=== PATIENT | male | born 1980 | race Caucasian/White ===

== ENCOUNTER 2025-06-21 14:50 | Emergency (ER) | payer BC, SELFPAY ==
[2025-06-21 14:56] VITALS: BP 155/93
[2025-06-21 17:00] VITALS: BMI 28.6
--- NOTE | 2025-06-21 17:50 | ED.GENMED ---
History of Present Illness
General
Chief Complaint: Eye Problems
Source: patient
Exam Limitations: none
Time Seen by Provider: 06/21/25 17:06
Nursing documentation reviewed up to this point in time: agreed with
History of Present Illness
History of Present Illness:
Patient to ED with complaint of left eye floaters. States he was accidentally elbowed over right eye yesterday. Last PM he noticed floaters. Denies blurred vision. Denies any eye pain. Brought self to ED for eval.
Past History
Past History
ED Past Medical History: None
Review of Systems
Review of Systems
Allergies reviewed?: Yes
All Other Systems: ROS reviewed and negative except as documented in HPI and ROS
Constitutional: Reports no symptoms
EENT: Reports other (right eye floaters)
Respiratory: Reports no symptoms
Cardiac: Reports no symptoms
ABD/GI: Reports no symptoms
: Reports no symptoms
Musculoskeletal: Reports no symptoms
Skin: Reports no symptoms
Neurological: Reports no symptoms
Psychiatric: Reports no symptoms
Phy Exam
General Physical Exam
General Presentation: well appearing and no apparent distress
General age: appears stated age
General Skin: warm and dry
General Habitus: normal
General Mental: alert
Eye Exam
Eye Exam: PERRL, EOMI, cornea clear, conjunctiva normal, disc sharp, globe normal and other (No hyphema, neg. gabby. Pressures - L 18, R19.)
Type of Exam: slit lamp, simple and fluorescein
Neurological Exam
Neurological Exam: alert, oriented x3 and CN II-XII intact
Musculoskeletal Exam
Musculoskeletal Exam: full ROM
Skin Exam
Skin Exam: normal color, warm/dry, no rash and other (No periorbital bruising or swelling)
Psychiatric Exam
Psychiatric Exam: normal mood/affect
Course
Orders/Labs/Results
Orders:
Orders
06/21/25 17:30
Fluorescein Sodium [Ful-Anna] 1 mg .ROUTE .STK-MED ONE
Tetracaine HCl [Tetracaine 0.5% Ophthalmic Solution] 1 drop .ROUTE .STK-MED ONE
Vital Signs
Initial and Last Documented VS:
Initial Vital Signs
Temp Pulse Resp BP Pulse Ox
98.7 F 79 17 155/93 99
06/21/25 14:56 06/21/25 14:56 06/21/25 14:56 06/21/25 14:56 06/21/25 14:56
Last Documented Vital Signs
Temp Pulse Resp BP Pulse Ox
98.7 F 79 17 155/93 99
06/21/25 14:56 06/21/25 14:56 06/21/25 14:56 06/21/25 14:56 06/21/25 14:56
*Radiology
Radiology exam reviewed: radiology read reviewed
*Pulse Oximetry
SaO2: 99
Oxygen Mode of Delivery: Room air
Patient hypoxic: no
*Critical Care Note
Total Time (30-74mins, 75-104mins- exclusive of procedures): Not Applicable
Update Note
Update Note:
Patient to ED with report of floaters in right eye.Accidentally elbowed over right orbit yesterday. No concerning findings on eye exam. PERRL, EOMI, conjunctiva is clear. No periorbital pain, swelling, bruising. No bleeding noted on exam.
Visualized portion of retina intact. WIll discharge home, to follow up with ophthalmology in AM. Given instructions on s/s to return to ED and he is agreeable toplan.
ED Attending Note
-
Portions of this chart may have been created with voice recognition software.� Occasional wrong word or��sound alike� substitutions may have occurred due to the inherent limitations of voice recognition software.
Discharge Plan
Departure
Patient Disposition: Home (Routine Discharge)
Date of Disposition: 06/21/25
Time of Disposition: 17:48
Patient with high blood pressure during this ER visit?: No
Condition: Good
Covid-19: Not Applicable
Discharge Problem:
Floater, vitreous
Instructions: Eye Contusion (DC), Floaters in the Eye
Referrals:
Dai Paez MD [Active, Ophthalmology] - Tomorrow
Activity Restrictions/Additional Instructions:
Return to the emergency department immediately for any changes in/worsening os your symptoms.
Interventions
Interventions:
*Risk Screen - Suicide Last Done: 06/21/25 14:58
*General Assessment Last Done: 06/21/25 14:58
*Neglect/Abuse Screening Last Done: 06/21/25 14:58
*ED- Fall Risk Assessment Last Done: 06/21/25 17:00
*ED COVID-19 Vaccine History Last Done: 06/21/25 14:58
Discharge Date and Time
Print Language: [id number]
== END 2025-06-21 18:09 | disposition home or self-care (01) ==
LOC: EMR 14:50
PROVIDERS: EMERGENCY PHYSICIAN Emergency Medicine; FAMILY PHYSICIAN Nurse Practitioner
DX: H43.392 Other vitreous opacities, left eye (principal)
CPT/HCPCS: 99282